=== PATIENT | female | born 1960 | race Two or more races ===

== ENCOUNTER 2020-09-25 08:35 | Emergency (ER) | payer OTHER, MEDICAID ==
[~2020-09-25] VITALS: Ht 175.3 cm; Wt 141.5 kg
[2020-09-25 09:17] VITALS: BP 167/84
[2020-09-25] MEDS ORDERED: ALBUTEROL SULF 2.5 MG/0.5ML(0.5%) NEB SOLN ONE (09:30)
[2020-09-25] MEDS ORDERED: IPRATROPIUM BROM 0.5 MG/2.5ML INH SOL ONE (09:31)
== END 2020-09-25 10:30 | disposition home or self-care (01) ==
LOC: ER 08:35
DX: J45.909 Unspecified asthma, uncomplicated (principal); J20.9 Acute bronchitis, unspecified; J01.90 Acute sinusitis, unspecified; N30.00 Acute cystitis without hematuria; I10 Essential (primary) hypertension
CPT/HCPCS: 71046; 94640; 99283; J7644

== ENCOUNTER 2022-07-09 15:22 | Emergency (ER) | payer OTHER, MEDICAID ==
[~2022-07-09] VITALS: Ht 175.3 cm; Wt 125.0 kg
[2022-07-09 15:45] VITALS: BP 147/77
[2022-07-09] MEDS ORDERED: IBUP800T27 PO (16:40)
[2022-07-09] MEDS ORDERED: IBUPROFEN 800 MG TAB PO ONE (16:45)
== END 2022-07-09 16:54 | disposition home or self-care (01) ==
LOC: ER 15:22
DX: S92.911A Unspecified fracture of right toe(s), initial encounter for closed fracture (principal); J45.909 Unspecified asthma, uncomplicated; I10 Essential (primary) hypertension; W22.8XXA Striking against or struck by other objects, initial encounter; Y93.01 Activity, walking, marching and hiking; Y92.89 Other specified places as the place of occurrence of the external cause; Y99.8 Other external cause status
CPT/HCPCS: 73630